=== PATIENT | male | born 1950 | race Caucasian/White ===

== ENCOUNTER 2017-11-05 | Emergency (ER) | payer SELFPAY | END 2017-11-05 20:07 | disposition left against medical advice (07) | DX: Z53.21 Procedure and treatment not carried out due to patient leaving prior to being seen by health care provider (principal) ==

== ENCOUNTER 2017-12-11 09:26 | Emergency (ER) | payer OTHER ==
[2017-12-11 10:19] LABS: Absolute Lymphocytes (CBC) 1.9 K/uL (0.7-4.9); Absolute Monocytes 0.7 K/uL (0.1-1.3); Absolute Neutrophil 4.6 K/uL (1.8-8.0); Basophils % 1.5 % (0-1.3); Eosinophils % 1.7 % (0-4.4); Hematocrit 37.3 % (39.6-49.0); Lymphocytes % 25.8 % (15.3-44.8); MCH 34.4 pg (27.0-35.0); MCV 103.9 fL (80-100); MPV 8.9 fL (7.6-11.3); Monocytes % 9.3 % (3.3-12.3); RBC Red Blood Cell Count 3.59 M/uL (4.33-5.43)
[2017-12-11] MEDS ORDERED: PROMETHAZINE 25 MG/ML VIAL ONE (10:20)
[2017-12-11] MEDS ORDERED: IPRATROPIUM BROM 0.5MG/2.5ML ONE (10:20)
[2017-12-11] MEDS ORDERED: ALBUTEROL 2.5 MG/3 ML NEB SOL ONE (10:20)
[2017-12-11] MEDS ORDERED: MORPHINE 10 MG/ML VIAL ONE ×2 (10:21→11:57)
[2017-12-11] MEDS ORDERED: NA CHLORIDE 0.9% 1,000 ML ONE (10:21)
[2017-12-11 10:32] LABS: Glucose Level 96 mg/dL (65-120); Lipase 25 U/L (22-51)
[2017-12-11 10:38] LABS: Albumin 2.2 g/dL (3.2-5.5); Alkaline Phosphatase 176 IU/L (42-121); BUN Blood Urea Nitrogen 14 mg/dL (6-20); Bilirubin Direct 0.7 mg/dL (0-0.2); Bilirubin Total 2.2 mg/dL (0.3-1.2); Protein, Total 5.9 g/dL (6.0-8.3)
[2017-12-11 10:41] LABS: ALT/SGPT 55 IU/L (10-60); AST/SGOT 102 IU/L (10-42); Bicarbonate 24 mEq/L (21-31); Potassium 4.9 mEq/L (3.6-5.0); Sodium Level 134 mEq/L (135-145)
[2017-12-11] MEDS ORDERED: CYANOCOBALAMIN 1000MCG/ML INJ IM ONE (11:00)
[2017-12-11] MEDS ORDERED: LACTULOSE 20 GM/30 ML UCUP ONE (11:07)
--- NOTE | 2017-12-11 11:46 | ER ---
Nurse's Notes [facility] Name: Maciel Grajeda Age: 67 yrs Sex: Male : 1950 Arrival Date: 12/11/2017 Time: 09:29 Bed 19 Private MD: Diagnosis: Generalized abdominal pain Presentation: 12/11 09:37 Presenting complaint: Patient states: "I have so much fluid on my stomach that the pain rb1 is excruciating. The last time I had my stomach drained, they took a half gallon of fluid off and the was a couple months ago.". Transition of care: patient was not received from another setting of care. Care prior to arrival: None. 09:37 Method Of Arrival: Wheelchair rb1 09:37 Acuity: DAILY 3 rb1 09:37 Onset of symptoms is unknown. Initial Sepsis Screen: Does the patient meet any 2 rb1 criteria? No. Patient's initial sepsis screen is negative. Does the patient have a suspected source of infection? No. Patient's initial sepsis screen is negative. Triage Assessment: 09:37 General: Appears uncomfortable, Behavior is calm, cooperative. General: Appears rb1 unkempt, Behavior is. Pain: Complains of pain in abdomen Pain currently is 10 out of 10 on a pain scale. Neuro: Level of Consciousness is awake, alert, obeys commands, Oriented to person, place, time, situation. Cardiovascular: Capillary refill < 3 seconds is brisk in bilateral fingers. Respiratory: Airway is patent Respiratory effort is even, unlabored, Respiratory pattern is regular, symmetrical. GI: Abdomen is distended. Derm: Skin is pink, warm \\T\\ dry. 09:37 GI: Reports diarrhea, nausea, vomiting, pt. stated, "I have had that going on for rb1 months now.". : No signs and/or symptoms were reported regarding the genitourinary system. Historical: - Allergies: 09:39 No Known Allergies; rb1 - Home Meds: 10:00 albuterol sulfate inhalation 8.5 gm IH Inhl daily [Active]; hydrocodone-acetaminophen rb1 10-325 mg Oral tab 1 tab every 6 hours [Active]; fentanyl 50 mcg/hr Topical pt72 1 patch every 72 hours [Active]; furosemide 20 mg Oral tab 1 tab 2 times per day [Active]; hydromorphone 4 mg Oral tab 1 tab every 6 hours PRN [Active]; magnesium oxide 400 mg Oral tab twice a day [Active]; Symbicort 160-4.5 mcg/actuation inhalation HFAA 2 puffs 2 times per day [Active]; fluticasone-vilanterol for inhalation 100-25 mcg inhalation 1 puff once daily [Active]; Keppra 500 mg Oral tab 1 tab 2 times per day [Active]; tiotropium bromide inhalation 18 mcg inhalation once daily [Active]; - PMHx: 09:39 Cancer; COPD; Emphysema; Hepatitis; Pneumonia; Seizures; rb1 - PSHx: 09:39 5th digit on right hand amuputated; right knee; rb1 - Immunization history:: Adult Immunizations up to date. - Social history:: Smoking status: Patient uses tobacco products, smokes one-half pack cigarettes per day. Screenin:37 Abuse screen: Denies threats or abuse. Nutritional screening: No deficits noted. rb1 Tuberculosis screening: No symptoms or risk factors identified. Fall Risk None identified. Assessment: 09:37 General: See triage assessment. rb1 09:37 GI: Bowel sounds present X 4 quads. Abd is rigid X 4 quads. rb1 10:34 Reassessment: Patient appears in no apparent distress at this time. Patient and/or rb1 family updated on plan of care and expected duration. Pain level reassessed. Patient is alert, oriented x 3, equal unlabored respirations, skin warm/dry/pink. 11:30 Reassessment: Patient appears in no apparent distress at this time. No changes from rb1 previously documented assessment. pt. is resting with eyes closed, respirations even, unlabored. 11:59 Reassessment: Spoke to Eleuterio in pharmacy, he said it was ok to give the Morphine 10 mg rb1 IM even though the vial says IV use only. 12:11 Reassessment: Patient appears in no apparent distress at this time. Patient and/or rb1 family updated on plan of care and expected duration. Pain level reassessed. Patient is alert, oriented x 3, equal unlabored respirations, skin warm/dry/pink. Vital Signs: 09:35 BP 106 / 87; Pulse 68; Resp 20; Temp 97.7(O); Pulse Ox 96% on R/A; Weight 61.23 kg; rb1 Height 5 ft. 8 in. (172.72 cm); Pain 10/10; 10:34 BP 121 / 68; Pulse 61; Resp 19; Pulse Ox 96% on R/A; rb1 11:14 BP 101 / 69; Pulse 76; Resp 17; Pulse Ox 97% on R/A; rb1 12:11 BP 109 / 74; Pulse 79; Resp 17; Pulse Ox 95% on R/A; Pain 5/10; rb1 09:35 Body Mass Index 20.53 (61.23 kg, 172.72 cm) rb1 ED Course: 09:29 Patient arrived in ED. as 09:30 Rosa Romero FNP-C [facility]. snw 09:30 Benjamin Gordon MD is Attending Physician. snw 09:37 Shraddha Bustillo, MARLEN is Primary Nurse. rb1 09:37 Arm band placed on right wrist. rb1 09:37 Patient has correct armband on for positive identification. Placed in gown. Bed in low rb1 position. Call light in reach. Side rails up X 1. Pulse ox on. NIBP on. Warm blanket given. 09:39 Triage completed. rb1 10:05 Inserted saline lock: 22 gauge in left forearm, using aseptic technique. Blood rb1 collected. 12:12 No provider procedures requiring assistance completed. IV discontinued, intact, rb1 bleeding controlled, No redness/swelling at site. Pressure dressing applied. Administered Medications: 10:21 Drug: NS 0.9% 1000 ml Route: IV; Rate: 75 ml/hr; Site: left forearm; rb1 12:09 Follow up: IV Status: Completed infusion rb1 10:21 Drug: Albuterol - atroVENT (3:1) (2.5 mg - 0.5 mg) 3 ml Route: Nebulizer; rb1 10:40 Follow up: Response: No adverse reaction; Marked relief of symptoms rb1 10:21 Drug: morphine 5 mg Route: IVP; Site: left forearm; rb1 10:40 Follow up: Response: No adverse reaction; Pain is decreased rb1 10:21 Drug: Phenergan 6.25 mg Route: IVP; Site: left forearm; rb1 10:40 Follow up: Response: No adverse reaction; Nausea is decreased rb1 10:48 Drug: Cyanocobalamin 1000 mcg Route: IM; Site: left deltoid; rb1 11:13 Follow up: Response: No adverse reaction rb1 11:10 Drug: Lactulose 30 grams Volume: 45 ml; Route: PO; rb1 12:09 Follow up: Response: No adverse reaction rb1 12:09 Drug: morphine 10 mg Route: IM; Site: right deltoid; rb1 Outcome: 11:45 Discharge ordered by . jacinto 12:32 Patient left the ED. ss 12:32 Discharged to home via wheelchair, with family. rb1 12:32 Condition: stable 12:32 Discharge instructions given to patient, Instructed on discharge instructions, follow up and referral plans. medication usage, Demonstrated understanding of instructions, follow-up care, medications, Prescriptions given X five Signatures: Rosa Romero, MANAGER OF HOUSEKEEPING-C MANAGER OF HOUSEKEEPING-Csnw [place], RN RN Shraddha Bustillo RN RN rb1 Corrections: (The following items were deleted from the chart) 11:29 09:39 Home Meds: None; rb1 rb1
--- NOTE | 2017-12-11 11:46 | EDPHYS ---
Physician Documentation [facility] Name: Maciel Grajeda Age: 67 yrs Sex: Male : 1950 Arrival Date: 12/11/2017 Time: 09:29 Bed 19 Private MD: ED Physician Benjamin Gordon HPI: 12/11 09:55 This 67 yrs old Male presents to ER via Wheelchair with complaints of snw Abdominal Pain. 09:55 The patient presents with abdominal pain abdominal distention that is diffuse. Onset: snw The symptoms/episode began/occurred gradually, and became worse 1 month(s) ago, and became persistent. The symptoms do not radiate. Associated signs and symptoms: Pertinent positives: abdominal pain. The symptoms are described as steady. Modifying factors: The symptoms are alleviated by nothing. Severity of pain: At its worst the pain was moderate. The patient has experienced similar episodes in the past, chronically. not since 11/07. Historical: - Allergies: 09:39 No Known Allergies; rb1 - Home Meds: 10:00 albuterol sulfate inhalation 8.5 gm IH Inhl daily [Active]; hydrocodone-acetaminophen rb1 10-325 mg Oral tab 1 tab every 6 hours [Active]; fentanyl 50 mcg/hr Topical pt72 1 patch every 72 hours [Active]; furosemide 20 mg Oral tab 1 tab 2 times per day [Active]; hydromorphone 4 mg Oral tab 1 tab every 6 hours PRN [Active]; magnesium oxide 400 mg Oral tab twice a day [Active]; Symbicort 160-4.5 mcg/actuation inhalation HFAA 2 puffs 2 times per day [Active]; fluticasone-vilanterol for inhalation 100-25 mcg inhalation 1 puff once daily [Active]; Keppra 500 mg Oral tab 1 tab 2 times per day [Active]; tiotropium bromide inhalation 18 mcg inhalation once daily [Active]; - PMHx: 09:39 Cancer; COPD; Emphysema; Hepatitis; Pneumonia; Seizures; rb1 - PSHx: 09:39 5th digit on right hand amuputated; right knee; rb1 - Immunization history:: Adult Immunizations up to date. - Social history:: Smoking status: Patient uses tobacco products, smokes one-half pack cigarettes per day. ROS: 09:55 Eyes: Negative for injury, pain, redness, and discharge, ENT: Negative for injury, snw pain, and discharge, Neck: Negative for injury, pain, and swelling, Cardiovascular: Negative for chest pain, palpitations, and edema, Respiratory: Negative for shortness of breath, cough, wheezing, and pleuritic chest pain. 09:55 Back: Negative for injury and pain, : Negative for injury, bleeding, discharge, and swelling, MS/Extremity: Negative for injury and deformity, Skin: Negative for injury, rash, and discoloration, Neuro: Negative for headache, weakness, numbness, tingling, and seizure. 09:55 Constitutional: Positive for body aches, malaise, poor PO intake. 09:55 Abdomen/GI: Positive for abdominal pain. Exam: 09:49 Head/Face: Normocephalic, atraumatic. Eyes: Pupils equal round and reactive to light, snw extra-ocular motions intact. Lids and lashes normal. Conjunctiva and sclera are non-icteric and not injected. Cornea within normal limits. Periorbital areas with no swelling, redness, or edema. ENT: Nares patent. No nasal discharge, no septal abnormalities noted. Tympanic membranes are normal and external auditory canals are clear. Oropharynx with no redness, swelling, or masses, exudates, or evidence of obstruction, uvula midline. Mucous membranes moist. Neck: Trachea midline, no thyromegaly or masses palpated, and no cervical lymphadenopathy. Supple, full range of motion without nuchal rigidity, or vertebral point tenderness. No Meningismus. Chest/axilla: Normal chest wall appearance and motion. Nontender with no deformity. No lesions are appreciated. Cardiovascular: Regular rate and rhythm with a normal S1 and S2. No gallops, murmurs, or rubs. Normal PMI, no JVD. No pulse deficits. 09:49 Back: No spinal tenderness. No costovertebral tenderness. Full range of motion. 09:49 Neuro: Awake and alert, GCS 15, oriented to person, place, time, and situation. Cranial nerves II-XII grossly intact. Motor strength 5/5 in all extremities. Sensory grossly intact. Cerebellar exam normal. Normal gait. Psych: Awake, alert, with orientation to person, place and time. Behavior, mood, and affect are within normal limits. 09:49 Constitutional: The patient appears awake, frail, uncomfortable. 09:49 Respiratory: mild respiratory distress is noted, Respirations: prolonged exhalation, shallow respirations, tachypnea, Breath sounds: wheezing: that is moderate, that is severe, is heard diffusely. 09:49 Abdomen/GI: Inspection: distension, that is moderate, Bowel sounds: active, Palpation: mild abdominal tenderness, tightness noted. 09:49 Skin: Appearance: Color: dusky, Temperature: warm, Moisture: dry. Vital Signs: 09:35 BP 106 / 87; Pulse 68; Resp 20; Temp 97.7(O); Pulse Ox 96% on R/A; Weight 61.23 kg; rb1 Height 5 ft. 8 in. (172.72 cm); Pain 10/10; 10:34 BP 121 / 68; Pulse 61; Resp 19; Pulse Ox 96% on R/A; rb1 11:14 BP 101 / 69; Pulse 76; Resp 17; Pulse Ox 97% on R/A; rb1 12:11 BP 109 / 74; Pulse 79; Resp 17; Pulse Ox 95% on R/A; Pain 5/10; rb1 09:35 Body Mass Index 20.53 (61.23 kg, 172.72 cm) rb1 MDM: 09:43 Data reviewed: vital signs, nurses notes, diagnostic data from outside facility, old snw medical records, Pt has Stage IV HCC, End stage COPD, not a candidate for transplantation. Can f/u on outpt basis with Dr. Wendy Wolf to monitor enzymes per records at [facility] as of last note 10/06/17. Pt was admitted to this hospital 10/22/17 and stated he just wanted to be comfortable. However, pt was listed as a full code at the time of admission. Data interpreted:. Counseling: I had a detailed discussion with the patient and/or guardian regarding: the historical points, exam findings, and any diagnostic results supporting the discharge/admit diagnosis, the presence of at least one elevated blood pressure reading (>120/80) during this emergency department visit, lab results, radiology results. 09:52 Special discussion: pt clearly states he does not want resuscitation if any problems snw occur. States he just wants to be comfortable and is in significant pain.. 10:09 Patient medically screened. snw 11:54 ED course: Pt has appt with Dr. Porter Wednesday. . 12/11 09:38 Order name: Basic Metabolic Panel; Complete Time: 10:43 12/11 09:38 Order name: CBC with Diff; Complete Time: 10:21 12/11 09:38 Order name: Hepatic Function; Complete Time: 10:43 12/11 09:38 Order name: Lipase; Complete Time: 10:43 12/11 09:38 Order name: TS; Complete Time: 11:22 12/11 09:38 Order name: AMMONIA; Complete Time: 10:43 12/11 09:38 Order name: Blood Culture Adult (2) 12/11 09:38 Order name: IV Saline Lock; Complete Time: 10:33 12/11 09:38 Order name: Labs collected and sent; Complete Time: 10:33 snw Administered Medications: 10:21 Drug: NS 0.9% 1000 ml Route: IV; Rate: 75 ml/hr; Site: left forearm; rb1 12:09 Follow up: IV Status: Completed infusion rb1 10:21 Drug: Albuterol - atroVENT (3:1) (2.5 mg - 0.5 mg) 3 ml Route: Nebulizer; rb1 10:40 Follow up: Response: No adverse reaction; Marked relief of symptoms rb1 10:21 Drug: morphine 5 mg Route: IVP; Site: left forearm; rb1 10:40 Follow up: Response: No adverse reaction; Pain is decreased rb1 10:21 Drug: Phenergan 6.25 mg Route: IVP; Site: left forearm; rb1 10:40 Follow up: Response: No adverse reaction; Nausea is decreased rb1 10:48 Drug: Cyanocobalamin 1000 mcg Route: IM; Site: left deltoid; rb1 11:13 Follow up: Response: No adverse reaction rb1 11:10 Drug: Lactulose 30 grams Volume: 45 ml; Route: PO; rb1 12:09 Follow up: Response: No adverse reaction rb1 12:09 Drug: morphine 10 mg Route: IM; Site: right deltoid; rb1 Disposition: 12/11/17 11:45 Discharged to Home. Impression: Generalized abdominal pain. - Condition is Stable. - Discharge Instructions: Abdominal Pain, Adult, Hypomagnesemia. - Prescriptions for magnesium oxide - take 400 milligram by ORAL route 1-2 times daily; 30 tablet. Keppra 500 mg Oral Tablet - take 1 tablet by ORAL route every 12 hours; 20 tablet. Lasix 20 mg Oral Tablet - take 1 tablet by ORAL route once daily; 20 tablet. Lactulose 10 gram/15 mL Oral Solution - take 30 milliliter by ORAL route once daily; 300 milliliter. Albuterol Sulfate 90 mcg/actuation - inhale 1-2 puff by INHALATION route every 4-6 hours; 1 Inhaler. - Medication Reconciliation Form, Thank You Letter, Antibiotic Education, Prescription Opioid Use form. - Follow up: Private Physician; When: 48 Hours; Reason: Recheck today's complaints, Continuance of care, Re-evaluation by your physician. Follow up: Emergency Department; When: As needed; Reason: Worsening of condition. Addendum: 01/04/2018 12:27 Co-signature as Attending Physician, Benjamin Gordon MD available for consultation at p s1 all times. . Signatures: Dispatcher [employer] EDSD Rosa Romero, ANTONIO-C SLOT MANAGER-Csnw Natalia Guajardo RN RN ss Shraddha Bustillo, RN RN rb1 Benjamin Gordon MD MD ps1 Corrections: (The following items were deleted from the chart) 12/11 11:29 09:39 Home Meds: None; rb1 rb1 12:32 11:45 12/11/2017 11:45 Discharged to Home. Impression: Generalized abdominal pain. ss Condition is Stable. Forms are Medication Reconciliation Form, Thank You Letter, Antibiotic Education, Prescription Opioid Use. Follow up: Private Physician; When: 48 Hours; Reason: Recheck today's complaints, Continuance of care, Re-evaluation by your physician. Follow up: Emergency Department; When: As needed; Reason: Worsening of condition. snw
[2017-12-11 12:38] VITALS: TEMP 97.7
[2017-12-11 12:41] VITALS: BP 109/74; O2SAT 95
== END 2017-12-11 12:32 | disposition home or self-care (01) ==
LOC: ER 09:26
DX: R10.84 Generalized abdominal pain (principal); J44.9 Chronic obstructive pulmonary disease, unspecified; J43.9 Emphysema, unspecified; R56.9 Unspecified convulsions; F17.210 Nicotine dependence, cigarettes, uncomplicated
CPT/HCPCS: 36415; 80048; 80076; 82140; 83690; 85025; 86850; 86900; 86901; 87040 ×2; 94640; 96361; 96372; 96374; 96375; 99284; J2550; J3420; J7030